=== PATIENT | male | born 1940 | race Caucasian/White ===

== ENCOUNTER 2019-01-10 13:30 | Outpatient (CLI) | payer MEDICARE, OTHER ==
--- NOTE | 2019-01-12 10:37 | XRAY Report ---
Reason: COUGH Procedure Date: 01/10/2019 Accession Number: [id number] / [id number] Procedure: XR - Chest 2 View X-Ray CPT Code: 82212 FULL RESULT: EXAM: CHEST RADIOGRAPHY EXAM DATE: 01/10/2019 01:48 PM. CLINICAL HISTORY: Cough for 4-5 months. COMPARISON: None. TECHNIQUE: 2 views. FINDINGS: Lungs/Pleura: No focal opacities evident. No pleural effusion. No pneumothorax. Flattened diaphragms with relatively normal lung volumes. Mediastinum: Heart and mediastinal contours are unremarkable. Other: AICD is noted with leads in expected position. IMPRESSION: Mild flattening of diaphragms, otherwise relatively normal lung volumes. No airspace consolidation or overt mass. [facility]
== END 2019-01-10 13:31 | disposition home or self-care (01) ==
LOC: DI 13:30
PROVIDERS: ATTEND Family Medicine
DX: R05 Cough (principal)
CPT/HCPCS: 71046